=== PATIENT | female | born 1970 | race Caucasian/White ===

== ENCOUNTER 2020-03-22 06:49 | Inpatient (IN) | payer OTHER ==
[2020-03-22] MEDS ORDERED: Lidocaine 1%/Sod Bicarbonate in NS 8.4% 1 ML Syringe IDERM PRN (07:00)
[2020-03-22] MEDS ORDERED: Lactated Ringers 1,000 ML IV SCH (07:00)
[2020-03-22] MEDS ORDERED: Sodium Chloride 0.9% 10 ML Syringe FLUSH PRN (07:00)
[2020-03-22] MEDS ORDERED: Lidocaine 1% with EPINEPHrine 1:100,000 20 ML MDV ONE (07:23)
[2020-03-22] MEDS ORDERED: Sodium Chloride 0.9% 50 ML SDV ONE (07:23)
[2020-03-22] MEDS ORDERED: Bupivacaine 0.5% 10 ML SDV ONE (07:23)
[2020-03-22] MEDS ORDERED: Bupivacaine 0.5% 30 ML SDV ONE (07:24)
--- NOTE | 2020-03-22 07:45 | PCM.PREANE ---
Preanesthetic Assessment - Procedure Proposed Procedure: Hysterectomy - Anesthesia/Transfusion/Family Hx Anesthesia History: Prior Anesthesia Without Reaction Transfusion History: No Prior Transfusion(s) - Review of Systems General: No Symptoms Pulmonary: No Symptoms Cardiovascular: No Symptoms Gastrointestinal: No Symptoms Neurological: Pre-Existing Deficit (patient reported having Right foot drop and numbless in right foot.) Other: Reports: None - Physical Assessment NPO Status Date: 03/21/20 NPO Status Time: 23:00 Vital Signs: 106/71 87 95% ASA Class: 2 Mental Status: Alert & Oriented x3 Airway Class: Mallampati = 2 Dentition: Reports: Normal Dentition Thyro-Mental Finger Breadths: 3 Mouth Opening Finger Breadths: 3 ROM/Head Extension: Full Lungs: Clear to Auscultation, Normal Respiratory Effort Cardiovascular: Regular Rate, Regular Rhythm - Lab Values: Laboratory Last Values Sodium 142 mEq/L (136-145) 03/22/20 07:00 Potassium 3.8 mEq/L (3.5-5.1) 03/22/20 07:00 Chloride 107 mEq/L (98-107) 03/22/20 07:00 Carbon Dioxide 22 mEq/L (21-32) 03/22/20 07:00 Anion Gap 16.8 (5-15) H 03/22/20 07:00 Urine HCG, Qual Negative (NEGATIVE) 03/22/20 06:50 - Allergies Allergies/Adverse Reactions: Allergies Allergy/AdvReac Type Severity Reaction Status Date / Time hydromorphone [From Dilaudid] Allergy Hallucinati Verified 03/21/20 12:41 ons Penicillins Allergy Hives Verified 03/21/20 12:41 varenicline [From Chantix] Allergy Rash Verified 03/21/20 12:41 - Acknowledgements Anesthesia Type Planned: General Anesthesia (main anesthetic), Spinal (for intra- and postoperative pain coverage), Regional Block (optional for extended pain coverage - TAP block) Pt an Appropriate Candidate for the Planned Anesthesia: Yes Alternatives and Risks of Anesthesia Discussed w Pt/Guardian: Yes Pt/Guardian Understands and Agrees with Anesthesia Plan: Yes Additional Comments: Patient received explanation about possible exacerbation of back pain and neurologic deficit following spinal block. She also received explanation about optional TAP block for extended pain coverage. Patient verbalized understanding and agreed to proceed. PreAnesthesia Questionnaire HEENT History: Reports: None Cardiovascular History: Reports: None Respiratory History: Reports: None Gastrointestinal History: Reports: None Genitourinary History: Reports: None SOCIAL SERVICE LIAISON History: Reports: , Other (See Below) Other OB/BYN History: menorrhagia, pelvic pressure, fibroids Musculoskeletal History: Reports: None Neurological History: Reports: Other (See Below) Other Neuro History: sciatic nerve pain, back pain, also c/o existing rt foot numbness/rt drop foot Psychiatric History: Reports: None Endocrine/Metabolic History: Reports: Other (See Below) Other Endocrine/Metabolic History: kory's thyroiditis Hematologic History: Reports: None Immunologic History: Reports: None Oncologic (Cancer) History: Reports: None Dermatologic History: Reports: None - Infectious Disease History Infectious Disease History: Reports: None - Past Surgical History Head Surgeries/Procedures: Reports: None HEENT Surgical History: Reports: None Cardiovascular Surgical History: Reports: None Respiratory Surgical History: Reports: None GI Surgical History: Reports: Appendectomy, EGD Female Surgical History: Reports: Section Male Surgical History: Reports: None Neurological Surgical History: Reports: None Musculoskeletal Surgical History: Reports: Other (See Below) Other Musculoskeletal Surgeries/Procedures:: left achilles tendon repair, Back surgery Oncologic Surgical History: Reports: None - SUBSTANCE USE Tobacco Use Status *Q: Current Every Day Tobacco User Recreational Drug Use History: No - CURRENT (IN HOUSE) MEDS Current Meds: Current Medications Lactated Ringer's (Ringers, Lactated) 1,000 mls @ 125 mls/hr IV ASDIRECTED SHARMILA Stop: 03/22/20 23:00 Lidocaine/Sodium Bicarbonate (Buffered Lidocaine 1% In Ns 8.4%) 0.25 ml IDERM ONETIME PRN PRN Reason: Prior to IV Start Stop: 03/22/20 23:00 Sodium Chloride (Saline Flush) 10 ml FLUSH ASDIRECTED PRN PRN Reason: Keep Vein Open Stop: 03/22/20 23:00 Discontinued Medications Bupivacaine HCl (Sensorcaine-Mpf 0.5%) Confirm Administered Dose 10 ml .ROUTE .STK-MED ONE Stop: 03/22/20 07:24 Bupivacaine HCl (Marcaine 0.5%) Confirm Administered Dose 30 ml .ROUTE .STK-MED ONE Stop: 03/22/20 07:25 Lidocaine/Epinephrine (Xylocaine 1% With Epinephrine 1:100,000) Confirm Administered Dose 20 ml .ROUTE .STK-MED ONE Stop: 03/22/20 07:24 Sodium Chloride (Normal Saline) Confirm Administered Dose 50 ml .ROUTE .STK-MED ONE Stop: 03/22/20 07:24
[2020-03-22] MEDS ORDERED: Dexmedetomidine 200 MCG/2 ML SDV ONE (07:53)
[2020-03-22] MEDS ORDERED: Midazolam 1 MG/ML 2 ML SDV ONE (07:54)
[2020-03-22] MEDS ORDERED: fentaNYL 250 MCG/5 ML SDV ONE (07:54)
[2020-03-22] MEDS ORDERED: Propofol 200 MG/20 ML SDV ONE (07:54)
[2020-03-22] MEDS ORDERED: Lidocaine 1% 4 ML ONE (07:55)
[2020-03-22] MEDS ORDERED: Ondansetron 4 MG/2 ML SDV ONE (07:55)
[2020-03-22] MEDS ORDERED: ceFAZolin 1 GM Vial ONE ×2 (07:55→11:40)
[2020-03-22] MEDS ORDERED: Succinylcholine/Sod PF 100 MG/5 ML SYRINGE IV ONE (07:59)
[2020-03-22] MEDS ORDERED: Lactated Ringers 1,000 ML ONE ×3 (08:26→11:36)
[2020-03-22] MEDS ORDERED: fentaNYL 100 MCG/2 ML SDV IVPUSH PRN (09:29)
[2020-03-22] MEDS ORDERED: ePHEDrine 50 MG/ML SDV ONE (10:59)
[2020-03-22] MEDS: Methylene Blue 50 MG/10 ML Ampule ONE ×2 (11:30→14:10)
[2020-03-22] MEDS ORDERED: Ropivacaine 0.5% 5 MG/ML 30 ML SDV ONE (11:46)
[2020-03-22] MEDS ORDERED: Dexamethasone 4 MG/ML 5 ML MDV ONE (11:55)
--- NOTE | 2020-03-22 12:41 | PCM.PRNOTE ---
- Free Text/Narrative Note: Date: 03/22/2020 Operation: lysis of adhesions, diagnostic sigmoidoscopy Reason for intraoperative consult: suspected bowel injury during hysterectomy Attendings: Drs. Espinoza and Ilsa Findings: moderate degree of small bowel interloop adhesions, omental adhesions to small bowel. No air leak detected on sigmoidoscopy. Detailed Report: Surgical consult for suspected bowel injury during hysterectomy, based on smell of stool. Laparotomy had already been completed on arrival. The omentum was dissected off the small bowel and reflected cephalad. Some interloop small bowel adhesions were taken down sharply with scissors. No small bowel injury was evident. The terminal ileum and cecum were visualized and appeared normal. The sigmoid colon and intraperitoneal rectum were inspected and appeared normal. Next, a flexible colonoscope was inserted as far as the distal sigmoid and the colon was insufflated after positioning the patient in reverse Trendelenburg and filling the pelvis with sterile saline. No evidence of air leak was detected. The scope was then withdrawn.
--- NOTE | 2020-03-22 13:38 | PCM.POSTAN ---
POST ANESTHESIA ASSESSMENT - MENTAL STATUS Mental Status: Alert, Oriented - VITAL SIGNS Vital Signs: Last Vital Signs Temp 97.1 F 03/22/20 12:54 Pulse 88 03/22/20 12:54 Resp 17 03/22/20 12:54 BP 104/62 03/22/20 12:54 Pulse Ox 95 03/22/20 12:54 - RESPIRATORY Respiratory Status: Respiratory Rate WNL, Airway Patent, O2 Saturation Stable - CARDIOVASCULAR CV Status: Pulse Rate WNL, Blood Pressure Stable - GASTROINTESTINAL GI Status: No Symptoms - PAIN Pain Score: 0 - POST OP HYDRATION Hydration Status: Adequate & Stable
--- NOTE | 2020-03-22 13:39 | PCM.OPNOTE ---
- General Post-Op/Procedure Note Date of Surgery/Procedure: 03/22/20 Operative Procedure(s): Laparoscopy, initiation of vaginal hysterectomy with conversion to laparotomy and abdominal hysterectomy with bilateral salpingoophorectomy Findings: Filmy adhesions of bowel to anterior abdominal wall, enlarged uterus, adhesions to pelvic sidewall adjacent to ovaries, see Dr. Ruggiero's note. Pre Op Diagnosis: menorrhagia, family history of ovarian cancer Post-Op Diagnosis: Same Anesthesia Technique: General ET Tube, Spinal Primary Surgeon: Gema Espinoza Inspector Of Dredging: Aiyana Rosenbaum Reason Inspector Of Dredging Was Necessary: difficulty of surgery, adhesion, retraction, patient safety Pathology: uterus, tubes and ovaries Fluid Replacement, Intraop: 3,300 Output, Urine Amount: 900 EBL in mLs: 300 Complications: None Condition: Good Free Text/Narrative:: the risks, benefits, indications, potential complications, and alternatives were explained to the patient and informed consent obtained. The patient was taken to the Operating Room where spinal was placed and then general anesthesia was induced without complication. The patient was placed in dorsal lithotomy with Dwayne Stirrups and an exam under anesthesia revealed the findings detailed above. The patient was then prepped and draped in the usual sterile fashion. A sterile bivalve speculum was placed into the vagina and the anterior lip of the cervix was grasped with a single tooth tenaculum and a [employer] uterine manipulator was placed to allow uterine manipulation throughout the procedure. The speculum and single tooth tenaculum were removed from the vagina. A Oliver catheter was placed in sterile fashion. Attention was then turned to the patients abdomen where a Veress needle was carefully introduced into the peritoneal cavity while tenting the abdominal wall. Intraperitoneal placement was confirmed by free flow of saline into the abdomen from a syringe open to gravity and with a low intraabdominal pressure with insufflation of C02 gas on low flow. The gas was increased to high flow and a pneumoperitoneum was obtained with C02 gas to a pressure of 15 mm Hg. A 5 mm skin incision was made in a vertical fashion in the umbilical fold and a 5 mm blunt trocar was inserted into the abdomen with direct visualization of the laparoscope through the clear view trocar lens. Significant adhesions noted. 5 mm skin incision was made in right lower quadrant and trocar inserted under direct visualization. Ligasure utilized to take down adhesion in left lower quadrant. 5 mm incision was made in usual fashion and blunt trocar placed. Attention turned to adhesions to anterior uterus. On the right the ovary and fallopian tube were not initially visualizable. With combination of blunt and ligisaure dissection filmy adhesions taken down to allow visualization of round ligaments bilaterally. Through dissection of adhesions to anterior uterus bladder flap was created. Decision made to open round ligament immediately adjacent to uterus bilaterally and transect a couple of bites bilaterally with plan to eventually return to remove ovaries after uterus removed. Attention was then turned to the vaginal portion of the procedure. A short weighted speculum was placed in the vagina, and the cervix was grasped with two double-toothed tenaculums. The cervix was injected circumferentially with 10 ml of 0.25% lidocaine with epinepherine. The cervix was then circumferentially incised with a scalpel. Visualization difficulty throughout given significantly narrow vagina. Initial attempt to enter posteriorly unsuccessful so bites taken bilaterally to transect uterosacral ligament. Bladder dissected upwards bluntly with ray malorie. Upon subsequent attempt to enter posteriorly there was a pronounced odor of stool. Given difficulty with visualization and significant odor there was concern for bowel injury either above from the laparoscopic portion now noted given entry posteriorly or to rectum. Decision made to open. Midline vertical incsion made in usual fashion and carried down to fascia which was in the midline. Peritoneum entered sharply and incision extended. Lazaro retractor placed. Uterus grasped, brought out of incision and pelvis inspected. Entry into vagina posteriorly was confirmed. Bilateral broad ligament clamped, cut and sutured. Curved heney clamps utilized to come across under the cervix and clamped, cut and suture ligated. Posterior cuff run and locked. Rectal exam at this point not concerning. Ovaries bilaterally grasped with yuni. Uteroovarian and mesosalpinx ligasure ligated to remove tubes and ovaries. Dr Ramirez of general surgery was consulted to run the bowel. See his note. Excellent hemostasis noted. Small amount of abraded areas along cuff so deirdre seal utilized. Fascia closed with 1 pds, subcuticular area approximated with 0 vicryl and skin closed with tono. 5 mm trocar sites closed with dermabond. Patient tolerated procedure well. Awakened and taken to PACU
--- NOTE | 2020-03-22 13:51 | PCM.PRNOTE ---
- Free Text/Narrative Note: Postoperative incisional pain control requested by surgeon. Pre-op Dx: Menorrhagia, fibroid uterus, dysmenorrhea Surgical procedurex: Total abdominal hysterectomy with bilateral salpingooophorectomy. Requesting physician: Dr. Gema Espinoza Procedure: Bilateral Transversus abdominis plane block U/S guidance Patient has been previously interviewed earlier today prior to the surgery and the option for postoperative Transversus abdominis plane block has been discussed, the patient has been offered such regional block per discussion with the surgeon. Risks and benefits discussed with the patient including infection, bleeding, incomplete or failed block, possible local anesthetic toxicity, and the optional block was added to the permit when the patient signed it.. Patient is in PACU postoperatively, stable , alert and awake. Positioned in right semi-decubitus. Time out performed at 13:12. Left abdominal wall at T8-T10 dermatomes was prepped with Chloraprep x 1 and allowed to dry. Under aseptic technique, the layers of external oblique, internal oblique and transversus abdominis muscles as well as parietal peritoneum were identified under ultrasound prior to needle insertion. 4" Stimuplex needle #20 G was inserted under US guidance. Normal saline was used in a stopcock to visualize the spread of the fluid and separation of muscle layers. Under direct visualization the injection of 0.5% Ropivacaine (24 ml) mixed with 2% Lidocaine (5 mls) with 1:200k epinephrine, with addition of 4 mg Dexamethasone and 40 mcg of Dexmedetomidine per syringe, total of 30 mls in divided doses, was completed without problems. Negative aspiration was maintained and checked every 5 mls of incremental injection of local anesthetic. No local anesthetic toxicity was noted. Then the patient was rotated to the left semi-decubitus and the procedure was repeated exactly on another side: left abdominal wall at T8-T10 dermatomes was prepped with Chloraprep x 1 and allowed to dry. Under aseptic technique, the layers of external oblique, internal oblique and transversus abdominis muscles as well as parietal peritoneum were identified under ultrasound prior to needle insertion. 4" Stimuplex needle #22 G was inserted under US guidance. Normal saline was used in a stopcock to visualize the spread of the fluid and separation of muscle layers. Under direct visualization the injection of 0.5% Ropivacaine (24 ml) mixed with 2% Lidocaine (5 mls) with 1:200k epinephrine, with addition of 4 mg Dexamethasone and 40 mcg of Dexmedetomidine per syringe, total of 30 mls in divided doses, was completed without problems. Negative aspiration was maintained and checked every 5 mls of incremental injection of local anesthetic. No local anesthetic toxicity was noted. Patient is awake, stable and tolerated the procedure well. Time: 13:12 - 13:30 Please see attached U/S pictures.
[2020-03-22] MEDS ORDERED: Ketorolac 30 MG/ML SDV IVPUSH PRN (14:44)
[2020-03-22] MEDS ORDERED: Acetaminophen/oxyCODONE 325-5 MG Tab PO PRN ×3 (14:44→19:22)
[2020-03-22] MEDS ORDERED: Ondansetron 4 MG/2 ML SDV IVPUSH PRN (19:24)
[2020-03-22] MEDS: Acetaminophen/oxyCODONE 325-5 MG Tab PO PRN (21:57)
[2020-03-23] MEDS: Ketorolac 30 MG/ML SDV IVPUSH PRN ×2 (01:35→14:08)
[2020-03-23] MEDS: Acetaminophen/oxyCODONE 325-5 MG Tab PO PRN ×5 (03:17→20:15)
--- NOTE | 2020-03-23 06:55 | PCM.SURGPN ---
- General Info Date of Service: 03/23/20 POD#: 1 Functional Status: Reports: Pain Controlled - Review of Systems General: Reports: No Symptoms HEENT: Reports: No Symptoms Pulmonary: Reports: No Symptoms Cardiovascular: Reports: No Symptoms Gastrointestinal: Reports: No Symptoms Genitourinary: Reports: No Symptoms Musculoskeletal: Reports: No Symptoms Skin: Reports: No Symptoms Neurological: Reports: No Symptoms Psychiatric: Reports: No Symptoms - Patient Data Vitals - Most Recent: Last Vital Signs Temp 36.7 C 03/23/20 03:12 Pulse 70 03/23/20 03:13 Resp 18 03/23/20 03:12 BP 114/56 L 03/23/20 03:12 Pulse Ox 95 03/23/20 03:13 Weight - Most Recent: 97.522 kg I&O - Last 24 Hours: Intake & Output 03/22/20 03/22/20 03/23/20 14:59 22:59 06:59 Intake Total 3300 1400 Output Total 1800 250 865 Balance 1500 1150 -865 Lab Results Last 24 Hrs: Laboratory Results - last 24 hr 03/22/20 03/22/20 03/22/20 Range/Units 06:50 07:00 07:00 WBC (3.98-10.04) K/mm3 RBC (3.98-5.22) M/mm3 Hgb (11.2-15.7) gm/dl Hct (34.1-44.9) % MCV (79.4-94.8) fl MCH (25.6-32.2) pg MCHC (32.2-35.5) g/dl RDW Std Deviation (36.4-46.3) fL Plt Count (182-369) K/mm3 MPV (9.4-12.3) fl Neut % (Auto) (34.0-71.1) % Lymph % (Auto) (19.3-51.7) % Mellette % (Auto) (4.7-12.5) % Eos % (Auto) (0.7-5.8) Baso % (Auto) (0.1-1.2) % Neut # (Auto) (1.56-6.13) K/mm3 Lymph # (Auto) (1.18-3.74) K/mm3 Mellette # (Auto) (0.24-0.36) K/mm3 Eos # (Auto) (0.04-0.36) K/mm3 Baso # (Auto) (0.01-0.08) K/mm3 Manual Slide Review Sodium 142 (136-145) mEq/L Potassium 3.8 (3.5-5.1) mEq/L Chloride 107 (98-107) mEq/L Carbon Dioxide 22 (21-32) mEq/L Anion Gap 16.8 H (5-15) Urine HCG, Qual Negative (NEGATIVE) Blood Type O POSITIVE Gel Antibody Screen Negative 03/22/20 Range/Units 07:00 WBC 7.01 (3.98-10.04) K/mm3 RBC 4.67 (3.98-5.22) M/mm3 Hgb 14.4 (11.2-15.7) gm/dl Hct 44.3 (34.1-44.9) % MCV 94.9 H (79.4-94.8) fl MCH 30.8 (25.6-32.2) pg MCHC 32.5 (32.2-35.5) g/dl RDW Std Deviation 54.4 H (36.4-46.3) fL Plt Count 275 (182-369) K/mm3 MPV 10.6 (9.4-12.3) fl Neut % (Auto) 50.2 (34.0-71.1) % Lymph % (Auto) 29.1 (19.3-51.7) % Mellette % (Auto) 15.4 H (4.7-12.5) % Eos % (Auto) 4.3 (0.7-5.8) Baso % (Auto) 0.9 (0.1-1.2) % Neut # (Auto) 3.52 (1.56-6.13) K/mm3 Lymph # (Auto) 2.04 (1.18-3.74) K/mm3 Mellette # (Auto) 1.08 H (0.24-0.36) K/mm3 Eos # (Auto) 0.30 (0.04-0.36) K/mm3 Baso # (Auto) 0.06 (0.01-0.08) K/mm3 Manual Slide Review Abnormal smear Sodium (136-145) mEq/L Potassium (3.5-5.1) mEq/L Chloride (98-107) mEq/L Carbon Dioxide (21-32) mEq/L Anion Gap (5-15) Urine HCG, Qual (NEGATIVE) Blood Type Gel Antibody Screen Med Orders - Current: Current Medications Ketorolac Tromethamine (Toradol) 30 mg IVPUSH Q8H PRN PRN Reason: Pain (moderate 4-6) Last Admin: 03/23/20 01:35 Dose: 30 mg Documented by: Ondansetron HCl (Zofran) 4 mg IVPUSH Q4H PRN PRN Reason: Nausea Oxycodone/Acetaminophen (Percocet 325-5 Mg) 1 tab PO Q4H PRN PRN Reason: Pain (moderate 4-6) Oxycodone/Acetaminophen (Percocet 325-5 Mg) 2 tab PO Q4H PRN PRN Reason: Pain (severe 7-10) Last Admin: 03/23/20 03:17 Dose: 2 tab Documented by: Discontinued Medications Bupivacaine HCl (Sensorcaine-Mpf 0.5%) Confirm Administered Dose 0 ml .ROUTE .STK-MED ONE Stop: 03/22/20 07:24 Bupivacaine HCl (Marcaine 0.5%) Confirm Administered Dose 30 ml .ROUTE .STK-MED ONE Stop: 03/22/20 07:25 Last Admin: 03/22/20 08:42 Dose: 13 ml Documented by: Cefazolin Sodium (Ancef) Confirm Administered Dose 2 gm .ROUTE .STK-MED ONE Stop: 03/22/20 07:56 Cefazolin Sodium (Ancef) Confirm Administered Dose 2 gm .ROUTE .STK-MED ONE Stop: 03/22/20 11:41 Dexamethasone (Dexamethasone) Confirm Administered Dose 20 mg .ROUTE .STK-MED ONE Stop: 03/22/20 11:56 Dexmedetomidine HCl (Precedex) Confirm Administered Dose 200 mcg .ROUTE .STK-MED ONE Stop: 03/22/20 07:54 Ephedrine Sulfate (Ephedrine Sulfate) Confirm Administered Dose 50 mg .ROUTE .STK-MED ONE Stop: 03/22/20 11:00 Fentanyl (Sublimaze) Confirm Administered Dose 250 mcg .ROUTE .STK-MED ONE Stop: 03/22/20 07:55 Fentanyl (Sublimaze) 100 mcg IVPUSH Q5M PRN PRN Reason: Pain Stop: 03/22/20 18:00 Lactated Ringer's (Ringers, Lactated) 1,000 mls @ 125 mls/hr IV ASDIRECTED SHARMILA Stop: 03/22/20 23:00 Last Admin: 03/22/20 07:30 Dose: 125 mls/hr Documented by: Lidocaine HCl (Xylocaine-Mpf 1%) Confirm Administered Dose 4 mls @ as directed .ROUTE .STK-MED ONE Stop: 03/22/20 07:56 Lactated Ringer's (Ringers, Lactated) Confirm Administered Dose 1,000 mls @ as directed .ROUTE .STK-MED ONE Stop: 03/22/20 08:27 Lactated Ringer's (Ringers, Lactated) Confirm Administered Dose 1,000 mls @ as directed .ROUTE .STK-MED ONE Stop: 03/22/20 10:02 Lactated Ringer's (Ringers, Lactated) Confirm Administered Dose 1,000 mls @ as directed .ROUTE .STK-MED ONE Stop: 03/22/20 11:37 Ketorolac Tromethamine (Toradol) 30 mg IVPUSH Q8H PRN PRN Reason: Pain (moderate 4-6) Stop: 03/22/20 19:00 Last Admin: 03/22/20 15:29 Dose: 30 mg Documented by: Lidocaine/Epinephrine (Xylocaine 1% With Epinephrine 1:100,000) Confirm Administered Dose 20 ml .ROUTE .STK-MED ONE Stop: 03/22/20 07:24 Last Admin: 03/22/20 09:50 Dose: 5 ml Documented by: Lidocaine/Sodium Bicarbonate (Buffered Lidocaine 1% In Ns 8.4%) 0.25 ml IDERM ONETIME PRN PRN Reason: Prior to IV Start Stop: 03/22/20 23:00 Methylene Blue (Provayblue) Confirm Administered Dose 50 mg .ROUTE .STK-MED ONE Stop: 03/22/20 11:25 Last Admin: 03/22/20 11:30 Dose: 1 mg Documented by: Midazolam HCl (Versed 1 Mg/Ml) Confirm Administered Dose 4 mg .ROUTE .STK-MED ONE Stop: 03/22/20 07:55 Miscellaneous Medication (Phenylephrine 1 Mg/10 Ml-Ns) Confirm Administered Dose 1 mg .ROUTE .STK-MED ONE Stop: 03/22/20 08:30 Miscellaneous Medication (Phenylephrine 1 Mg/10 Ml-Ns) Confirm Administered Dose 1 mg .ROUTE .STK-MED ONE Stop: 03/22/20 10:36 Ondansetron HCl (Zofran) Confirm Administered Dose 8 mg .ROUTE .STK-MED ONE Stop: 03/22/20 07:56 Oxycodone/Acetaminophen (Percocet 325-5 Mg) 1 tab PO Q4H PRN PRN Reason: Pain (moderate 4-6) Stop: 03/22/20 19:00 Last Admin: 03/22/20 17:59 Dose: 1 tab Documented by: Oxycodone/Acetaminophen (Percocet 325-5 Mg) 2 tab PO Q4H PRN PRN Reason: Pain (severe 7-10) Stop: 03/22/20 19:00 Propofol (Diprivan 20 Ml) Confirm Administered Dose 200 mg .ROUTE .STK-MED ONE Stop: 03/22/20 07:55 Ropivacaine (Naropin 0.5%) Confirm Administered Dose 60 ml .ROUTE .STK-MED ONE Stop: 03/22/20 11:47 Sodium Chloride (Saline Flush) 10 ml FLUSH ASDIRECTED PRN PRN Reason: Keep Vein Open Stop: 03/22/20 23:00 Sodium Chloride (Normal Saline) Confirm Administered Dose 50 ml .ROUTE .STK-MED ONE Stop: 03/22/20 07:24 Last Admin: 03/22/20 09:50 Dose: 15 ml Documented by: - Exam Wound/Incisions: Healing Well General: Alert, Oriented HEENT: Pupils Equal Neck: Supple Lungs: Clear to Auscultation, Normal Respiratory Effort Cardiovascular: Regular Rate, Regular Rhythm GI/Abdominal Exam: Normal Bowel Sounds, Soft, Non-Tender Extremities: Normal Inspection, Normal Range of Motion, Non-Tender, No Pedal Edema, Normal Capillary Refill Skin: Warm, Dry, Intact Neurological: No New Focal Deficit Psy/Mental Status: Alert, Normal Affect, Normal Mood Sepsis Event Note - Evaluation Sepsis Screening Result: No Definite Risk - Focused Exam Vital Signs: Vital Signs Temp Pulse Resp BP Pulse Ox 03/23/20 03:13 70 95 03/23/20 03:12 36.7 C 63 18 114/56 L 93 L 03/22/20 19:59 78 92 L 03/22/20 19:58 36.8 C 70 16 107/61 92 L - Problem List Review Problem List Initiated/Reviewed/Updated: Yes - My Orders Last 24 Hours: Active Orders 24 hr Category Date Time Status Ambulate [RC] ASDIRECTED Care 03/22/20 14:44 Active Antiembolic Devices [RC] PER UNIT ROUTINE Care 03/22/20 14:44 Active Up With Assistance [RC] PER UNIT ROUTINE Care 03/22/20 14:44 Active Urinary Catheter Removal [RC] PER UNIT ROUTINE Care 03/23/20 05:00 Active Vital Signs [RC] 03,,, Care 03/22/20 14:44 Active Clear Liquid Diet [DIET] Diet 03/22/20 Dinner Active CBC W/O DIFF,HEMOGRAM [HEME] AM Lab 03/23/20 06:26 Received COMPREHENSIVE METABOLIC PN,CMP [CHEM] AM Lab 03/23/20 06:26 Received Acetaminophen/oxyCODONE [Percocet 325-5 MG] Med 03/22/20 19:22 Active 1 tab PO Q4H PRN Acetaminophen/oxyCODONE [Percocet 325-5 MG] Med 03/22/20 19:23 Active 2 tab PO Q4H PRN Ketorolac [Toradol] Med 03/22/20 19:23 Active 30 mg IVPUSH Q8H PRN Ondansetron [Zofran] Med 03/22/20 19:24 Active 4 mg IVPUSH Q4H PRN Sequential Compression Device [OM.PC] Per Unit Routine Oth 03/22/20 14:44 Ordered Resuscitation Status Routine Resus Stat 03/22/20 13:09 Ordered Medication Orders Ketorolac Tromethamine (Toradol) 30 mg IVPUSH Q8H PRN PRN Reason: Pain (moderate 4-6) Last Admin: 03/23/20 01:35 Dose: 30 mg Documented by: RUBY Ondansetron HCl (Zofran) 4 mg IVPUSH Q4H PRN PRN Reason: Nausea Oxycodone/Acetaminophen (Percocet 325-5 Mg) 1 tab PO Q4H PRN PRN Reason: Pain (moderate 4-6) Oxycodone/Acetaminophen (Percocet 325-5 Mg) 2 tab PO Q4H PRN PRN Reason: Pain (severe 7-10) Last Admin: 03/23/20 03:17 Dose: 2 tab Documented by: [email or web address] Admin: 03/22/20 21:57 Dose: 2 tab Documented by: [email or web address]
[2020-03-23] MEDS ORDERED: Polyethylene Glycol 3350 Powder 17 GM Packet PO PRN (08:46)
[2020-03-23] MEDS: Docusate Sodium 100 MG Cap PO PRN ×2 (09:51→21:23)
--- NOTE | 2020-03-23 09:57 | PCM48HPAN ---
Post Anesthesia Note - EVALUATION WITHIN 48HRS OF ANESTHETIC Vital Signs in Normal Range: Yes Patient Participated in Evaluation: Yes Respiratory Function Stable: Yes Airway Patent: Yes Cardiovascular Function Stable: Yes Hydration Status Stable: Yes Pain Control Satisfactory: Yes Nausea and Vomiting Control Satisfactory: Yes Mental Status Recovered: Yes Vital Signs: Last Vital Signs Temp 98.1 F 03/23/20 03:12 Pulse 70 03/23/20 03:13 Resp 18 03/23/20 03:12 BP 114/56 L 03/23/20 03:12 Pulse Ox 95 03/23/20 03:13 - COMMENTS/OBSERVATIONS Free Text/Narrative:: Patient on her postoperative day 1. Ambulates, Oliver catheter discontinued, taking PO well, no backache / headache complains. No apparent anesthesia complications noted.
[2020-03-23] MEDS: Ibuprofen 600 MG Tab PO PRN (21:23)
[2020-03-24] MEDS: Acetaminophen/oxyCODONE 325-5 MG Tab PO PRN ×2 (00:15→08:59)
[2020-03-24] MEDS: Ibuprofen 600 MG Tab PO PRN (03:47)
--- NOTE | 2020-03-24 06:49 | PCM.DCSUM1 ---
Discharge Summary - Hospital Course Brief History: Admitted and uncomplicated postop course. Diagnosis: Stroke: No - Discharge Data Discharge Date: 03/24/20 Discharge Disposition: Home, Self-Care 01 Condition: Good - Referral to Home Health Primary Care Physician: Gema Espinoza MD - Patient Summary/Data Operative Procedure(s) Performed: Laparoscopy, initiation of vaginal hysterectomy with conversion to laparotomy and abdominal hysterectomy with bilateral salpingoophorectomy - Patient Instructions Diet: Usual Diet as Tolerated Activity: No Strenuous Activities Driving: May Drive Today Showering/Bathing: May Shower Wound/Incision Care: Keep Operative Site/Wound Site Clean and Dry, Change Dressing Daily, Do NOT Change Dressing Notify Provider of: Fever, Increased Pain, Swelling and Redness, Drainage, Nausea and/or Vomiting - Discharge Plan *PRESCRIPTION DRUG MONITORING PROGRAM REVIEWED*: No *COPY OF PRESCRIPTION DRUG MONITORING REPORT IN PATIENT DAVI: No Referrals: Gema Espinoza MD [Primary Care Provider] - (Early next week tono out, I'll contact her with info. 2 weeks and 6 weeks with me.) - Discharge Summary/Plan Comment DC Time >30 min.: No - General Info Date of Service: 03/24/20 Functional Status: Reports: Pain Controlled - Review of Systems General: Reports: No Symptoms HEENT: Reports: No Symptoms Pulmonary: Reports: No Symptoms Cardiovascular: Reports: No Symptoms Gastrointestinal: Reports: No Symptoms Genitourinary: Reports: No Symptoms Musculoskeletal: Reports: No Symptoms Skin: Reports: No Symptoms Neurological: Reports: No Symptoms Psychiatric: Reports: No Symptoms - Patient Data Vitals - Most Recent: Last Vital Signs Temp 36.7 C 03/24/20 03:00 Pulse 62 03/24/20 03:00 Resp 18 03/24/20 03:00 BP 119/88 03/24/20 03:00 Pulse Ox 95 03/24/20 03:00 Weight - Most Recent: 97.522 kg I&O - Last 24 hours: Intake & Output 03/23/20 03/23/20 03/24/20 14:59 22:59 06:59 Output Total 300 Balance -300 Lab Results - Last 24 hrs: Laboratory Results - last 24 hr 03/23/20 03/23/20 Range/Units 06:26 06:26 WBC 15.85 H (3.98-10.04) K/mm3 RBC 4.05 (3.98-5.22) M/mm3 Hgb 12.5 D (11.2-15.7) gm/dl Hct 38.9 (34.1-44.9) % MCV 96.0 H (79.4-94.8) fl MCH 30.9 (25.6-32.2) pg MCHC 32.1 L (32.2-35.5) g/dl RDW Std Deviation 54.9 H (36.4-46.3) fL Plt Count 181 L D (182-369) K/mm3 MPV 12.0 (9.4-12.3) fl Sodium 141 (136-145) mEq/L Potassium 3.9 (3.5-5.1) mEq/L Chloride 107 (98-107) mEq/L Carbon Dioxide 23 (21-32) mEq/L Anion Gap 14.9 (5-15) BUN 12 (7-18) mg/dL Creatinine 0.6 (0.55-1.02) mg/dL Est Cr Clr Drug Dosing 126.77 mL/min Estimated GFR (MDRD) > 60 (>60) mL/min BUN/Creatinine Ratio 20.0 H (14-18) Glucose 113 H (74-106) mg/dL Calcium 8.5 (8.5-10.1) mg/dL Total Bilirubin 0.6 (0.2-1.0) mg/dL AST 13 L (15-37) U/L ALT 13 L (14-59) U/L Alkaline Phosphatase 62 (46-116) U/L Total Protein 6.0 L (6.4-8.2) g/dl Albumin 2.6 L (3.4-5.0) g/dl Globulin 3.4 gm/dL Albumin/Globulin Ratio 0.8 L (1-2) Med Orders - Current: Current Medications Docusate Sodium (Colace) 100 mg PO BID PRN PRN Reason: Constipation Last Admin: 03/23/20 21:23 Dose: 100 mg Documented by: Ibuprofen (Motrin) 600 mg PO Q6H PRN PRN Reason: Pain (moderate 4-6) Last Admin: 03/24/20 03:47 Dose: 600 mg Documented by: Ondansetron HCl (Zofran) 4 mg IVPUSH Q4H PRN PRN Reason: Nausea Oxycodone/Acetaminophen (Percocet 325-5 Mg) 1 tab PO Q4H PRN PRN Reason: Pain (moderate 4-6) Last Admin: 03/24/20 05:00 Dose: 1 tab Documented by: Oxycodone/Acetaminophen (Percocet 325-5 Mg) 2 tab PO Q4H PRN PRN Reason: Pain (severe 7-10) Last Admin: 03/24/20 00:15 Dose: 2 tab Documented by: Polyethylene Glycol (Miralax) 17 gm PO TID PRN PRN Reason: Constipation Discontinued Medications Bupivacaine HCl (Sensorcaine-Mpf 0.5%) Confirm Administered Dose 0 ml .ROUTE .STK-MED ONE Stop: 03/22/20 07:24 Bupivacaine HCl (Marcaine 0.5%) Confirm Administered Dose 30 ml .ROUTE .STK-MED ONE Stop: 03/22/20 07:25 Last Admin: 03/22/20 08:42 Dose: 13 ml Documented by: Cefazolin Sodium (Ancef) Confirm Administered Dose 2 gm .ROUTE .STK-MED ONE Stop: 03/22/20 07:56 Cefazolin Sodium (Ancef) Confirm Administered Dose 2 gm .ROUTE .STK-MED ONE Stop: 03/22/20 11:41 Dexamethasone (Dexamethasone) Confirm Administered Dose 20 mg .ROUTE .STK-MED ONE Stop: 03/22/20 11:56 Dexmedetomidine HCl (Precedex) Confirm Administered Dose 200 mcg .ROUTE .STK-MED ONE Stop: 03/22/20 07:54 Ephedrine Sulfate (Ephedrine Sulfate) Confirm Administered Dose 50 mg .ROUTE .STK-MED ONE Stop: 03/22/20 11:00 Fentanyl (Sublimaze) Confirm Administered Dose 250 mcg .ROUTE .STK-MED ONE Stop: 03/22/20 07:55 Fentanyl (Sublimaze) 100 mcg IVPUSH Q5M PRN PRN Reason: Pain Stop: 03/22/20 18:00 Lactated Ringer's (Ringers, Lactated) 1,000 mls @ 125 mls/hr IV ASDIRECTED SHARMILA Stop: 03/22/20 23:00 Last Admin: 03/22/20 07:30 Dose: 125 mls/hr Documented by: Lidocaine HCl (Xylocaine-Mpf 1%) Confirm Administered Dose 4 mls @ as directed .ROUTE .STK-MED ONE Stop: 03/22/20 07:56 Lactated Ringer's (Ringers, Lactated) Confirm Administered Dose 1,000 mls @ as directed .ROUTE .STK-MED ONE Stop: 03/22/20 08:27 Lactated Ringer's (Ringers, Lactated) Confirm Administered Dose 1,000 mls @ as directed .ROUTE .STK-MED ONE Stop: 03/22/20 10:02 Lactated Ringer's (Ringers, Lactated) Confirm Administered Dose 1,000 mls @ as directed .ROUTE .STK-MED ONE Stop: 03/22/20 11:37 Ketorolac Tromethamine (Toradol) 30 mg IVPUSH Q8H PRN PRN Reason: Pain (moderate 4-6) Stop: 03/22/20 19:00 Last Admin: 03/22/20 15:29 Dose: 30 mg Documented by: Ketorolac Tromethamine (Toradol) 30 mg IVPUSH Q8H PRN PRN Reason: Pain (moderate 4-6) Last Admin: 03/23/20 14:08 Dose: 30 mg Documented by: Lidocaine/Epinephrine (Xylocaine 1% With Epinephrine 1:100,000) Confirm Administered Dose 20 ml .ROUTE .STK-MED ONE Stop: 03/22/20 07:24 Last Admin: 03/22/20 09:50 Dose: 5 ml Documented by: Lidocaine/Sodium Bicarbonate (Buffered Lidocaine 1% In Ns 8.4%) 0.25 ml IDERM ONETIME PRN PRN Reason: Prior to IV Start Stop: 03/22/20 23:00 Methylene Blue (Provayblue) Confirm Administered Dose 50 mg .ROUTE .STK-MED ONE Stop: 03/22/20 11:25 Last Admin: 03/22/20 11:30 Dose: 1 mg Documented by: Midazolam HCl (Versed 1 Mg/Ml) Confirm Administered Dose 4 mg .ROUTE .STK-MED ONE Stop: 03/22/20 07:55 Miscellaneous Medication (Phenylephrine 1 Mg/10 Ml-Ns) Confirm Administered Dose 1 mg .ROUTE .STK-MED ONE Stop: 03/22/20 08:30 Miscellaneous Medication (Phenylephrine 1 Mg/10 Ml-Ns) Confirm Administered Dose 1 mg .ROUTE .STK-MED ONE Stop: 03/22/20 10:36 Ondansetron HCl (Zofran) Confirm Administered Dose 8 mg .ROUTE .STK-MED ONE Stop: 03/22/20 07:56 Oxycodone/Acetaminophen (Percocet 325-5 Mg) 1 tab PO Q4H PRN PRN Reason: Pain (moderate 4-6) Stop: 03/22/20 19:00 Last Admin: 03/22/20 17:59 Dose: 1 tab Documented by: Oxycodone/Acetaminophen (Percocet 325-5 Mg) 2 tab PO Q4H PRN PRN Reason: Pain (severe 7-10) Stop: 03/22/20 19:00 Propofol (Diprivan 20 Ml) Confirm Administered Dose 200 mg .ROUTE .STK-MED ONE Stop: 03/22/20 07:55 Ropivacaine (Naropin 0.5%) Confirm Administered Dose 60 ml .ROUTE .STK-MED ONE Stop: 03/22/20 11:47 Sodium Chloride (Saline Flush) 10 ml FLUSH ASDIRECTED PRN PRN Reason: Keep Vein Open Stop: 03/22/20 23:00 Sodium Chloride (Normal Saline) Confirm Administered Dose 50 ml .ROUTE .STK-MED ONE Stop: 03/22/20 07:24 Last Admin: 03/22/20 09:50 Dose: 15 ml Documented by: - Exam General: Reports: Alert, Oriented HEENT: Reports: Pupils Equal, Pupils Reactive, EOMI, Mucous Membr. Moist/[place] Neck: Reports: Supple Lungs: Reports: Clear to Auscultation, Normal Respiratory Effort Cardiovascular: Reports: Regular Rate GI/Abdominal Exam: Normal Bowel Sounds, Soft, Non-Tender, No Organomegaly, No Distention, No Abnormal Bruit, No Mass Rectal (Female) Exam: Normal Exam, Normal Rectal Tone Back Exam: Reports: Normal Inspection, Full Range of Motion Extremities: Normal Inspection, Normal Range of Motion, Non-Tender, No Pedal Edema, Normal Capillary Refill Skin: Reports: Warm, Dry, Intact Wound/Incisions: Reports: Healing Well Neurological: Reports: No New Focal Deficit Psy/Mental Status: Reports: Alert, Normal Affect, Normal Mood
== END 2020-03-24 09:00 | disposition home or self-care (01) | DRG 743 ==
LOC: JD.SDS 06:49 → JD.OB 13:08
PROVIDERS: ADMIT Obstetrics & Gynecology; ATTEND Obstetrics & Gynecology
PROC: 0UT90ZZ Resection of Uterus, Open Approach (ICD-10-PCS; principal; 2020-03-22)
PROC: 0UJD4ZZ Inspection of Uterus and Cervix, Percutaneous Endoscopic Approach (ICD-10-PCS; 2020-03-22)
PROC: 0UT20ZZ Resection of Bilateral Ovaries, Open Approach (ICD-10-PCS; 2020-03-22)
PROC: 0UT70ZZ Resection of Bilateral Fallopian Tubes, Open Approach (ICD-10-PCS; 2020-03-22)
PROC: 0DJD8ZZ Inspection of Lower Intestinal Tract, Via Natural or Artificial Opening Endoscopic (ICD-10-PCS; 2020-03-22)
DX: N92.0 Excessive and frequent menstruation with regular cycle (principal); Z80.41 Family history of malignant neoplasm of ovary; N94.6 Dysmenorrhea, unspecified; D25.9 Leiomyoma of uterus, unspecified; N73.6 Female pelvic peritoneal adhesions (postinfective); M21.371 Foot drop, right foot; F17.200 Nicotine dependence, unspecified, uncomplicated; E06.3 Autoimmune thyroiditis; Z88.5 Allergy status to narcotic agent; Z88.0 Allergy status to penicillin; Z88.8 Allergy status to other drugs, medicaments and biological substances; Z90.49 Acquired absence of other specified parts of digestive tract
CPT/HCPCS: 00840; 36415; 64488; 80051; 80053; 81025; 85025; 85027; 86850; 86900; 86901; A9270-GY; J0330; J0690; J1100; J1885; J2001; J2250; J2370; J2405; J2704; J2795; J3010; J3490; J7120